=== PATIENT | female | born 1990 | race Caucasian/White ===

== ENCOUNTER 2017-05-02 21:42 | Emergency (ER) | payer OTHER | END 2017-05-02 21:52 | disposition home or self-care (01) | LOC: ER 21:42 | DX: J06.9 Acute upper respiratory infection, unspecified (principal); K21.9 Gastro-esophageal reflux disease without esophagitis; I10 Essential (primary) hypertension; J30.2 Other seasonal allergic rhinitis; Z90.49 Acquired absence of other specified parts of digestive tract; Z98.84 Bariatric surgery status; Z88.0 Allergy status to penicillin; Z88.1 Allergy status to other antibiotic agents; Z79.899 Other long term (current) drug therapy ==